=== PATIENT | female | born 1960 | race Caucasian/White ===

== ENCOUNTER 2023-11-15 18:57 | Emergency (ER) | payer OTHER ==
[~2023-11-15] VITALS: Ht 157.5 cm; Wt 106.0 kg
[2023-11-15 19:07] VITALS: O2SAT 100
[2023-11-15 19:10] VITALS: TEMP 98.6
[2023-11-15 20:15] VITALS: BP 181/72; PULSE 80; RESP 15
[2023-11-15] MEDS: IBUPROFEN 600MG TABLET PO ONE (20:15)
[2023-11-15] MEDS ORDERED: METH-653 MT (22:09)
== END 2023-11-15 22:38 | disposition home or self-care (01) ==
LOC: ER 18:57
DX: M54.9 Dorsalgia, unspecified (principal); E11.9 Type 2 diabetes mellitus without complications; Z98.890 Other specified postprocedural states
CPT/HCPCS: 72070; 99283